=== PATIENT | female | born 1935 | race Caucasian/White ===

== ENCOUNTER 2018-02-17 07:22 | Day surgery (SDC) | payer OTHER ==
[2018-02-16 08:15] VITALS: BMI 29.2
[2018-02-17 08:08] VITALS: TEMP 98.8
[2018-02-17] MEDS ORDERED: PROPOFOL 20 ML ONE (08:17)
[2018-02-17] MEDS ORDERED: ePHEDrine SULFATE 50 MG/1 ML AMPULE ONE (08:17)
[2018-02-17] MEDS ORDERED: SUCCINYLCHOLINE CHLORIDE 200 MG/10 ML VIAL ONE (08:17)
[2018-02-17] MEDS ORDERED: SODIUM CHLORIDE 0.9% P/F 10 ML VIAL IJ ONE (08:18)
--- NOTE | 2018-02-17 08:23 | HP ---
Admitting History and Physical - Admission Chief Complaint: left foot 5th toe pain History of Present Illness: This is a 83 year old female with pmhx HTN, HLD, remote left ductal breast cancer s/p lumpectomy with radiation, sciatica, left eye macular degeneration, early dementia recently placed on medication, presented today for Left hammer toe correction. PT reports pain since last fall, however ambulating worsens when toe becomes inflamed. Separate to that, her sciatica has worsened this morning, she complains of R hip pain. PT denies fever, chills, sob, chest pain, abd pain, n/v, sick contacts. History Source: Patient, Family Member Limitations to Obtaining History: No Limitations - Past Medical History P[employer]: Yes: Dementia Cardiovascular: Yes: HTN, Hyperlipdemia Musculoskeletal: Yes: Other (sciatica) - Past Surgical History Additional Past Surgical History: lumpectomy - Smoking History Smoking history: Former smoker Have you smoked in the past 12 months: No - Alcohol/Substance Use Hx Alcohol Use: No History of Substance Use: reports: None - Social History Usual Living Arrangement: Yes: With Spouse ADL: Independent Home Medications - Allergies Allergies/Adverse Reactions: Allergies Allergy/AdvReac Type Severity Reaction Status Date / Time No Known Allergies Allergy Verified 02/16/18 08:15 - Home Medications Home Medications: Ambulatory Orders Aspirin 81 mg PO DAILY 02/16/18 Atorvastatin Ca [Lipitor] 20 mg PO DAILY 02/16/18 Cholecalciferol (Vitamin D3) [Vitamin D3] 5,000 unit PO DAILY 02/16/18 Donepezil HCl [Aricept] 5 mg PO DAILY 02/16/18 Lisinopril 10 mg PO DAILY 02/16/18 Memantine HCl 10 mg PO DAILY 02/16/18 Triamterene/Hydrochlorothiazid [Triamterene-Hctz 37.5-25 mg Cp] 1 each PO DAILY 02/16/18 Vit C/E/Zn/Coppr/Lutein/Zeaxan [Preservision Areds 2 Softgel] 1 each PO DAILY Review of Systems - Review of Systems Constitutional: reports: No Symptoms Eyes: reports: No Symptoms HENT: reports: No Symptoms Neck: reports: No Symptoms Cardiovascular: reports: No Symptoms Respiratory: reports: No Symptoms Gastrointestinal: reports: No Symptoms Genitourinary: reports: No Symptoms Breasts: reports: See HPI Musculoskeletal: reports: Other (left 5th toe tenderness) Integumentary: reports: No Symptoms Neurological: reports: No Symptoms Endocrine: reports: No Symptoms Hematology/Lymphatic: reports: No Symptoms Psychiatric: reports: No Symptoms Physical Examination Constitutional: Yes: No Distress Eyes: Yes: Conjunctiva Clear Neck: Yes: Supple Cardiovascular: Yes: Regular Rate and Rhythm, S1, S2 Respiratory: Yes: Regular, CTA Bilaterally Gastrointestinal: Yes: Normal Bowel Sounds, Soft Renal/: Yes: WNL Extremities: Yes: Erythema (left foot 5th digit, tenderness, swelling) Edema: No Peripheral Pulses WNL: Yes Integumentary: Yes: WNL Problem List - Problems (1) Hammer toe of left foot Code(s): M20.42 - OTHER HAMMER TOE(S) (ACQUIRED), LEFT FOOT (2) HTN (hypertension) Code(s): I10 - ESSENTIAL (PRIMARY) HYPERTENSION (3) HLD (hyperlipidemia) Code(s): E78.5 - HYPERLIPIDEMIA, UNSPECIFIED (4) Breast cancer Code(s): C50.919 - MALIGNANT NEOPLASM OF UNSP SITE OF UNSPECIFIED FEMALE BREAST (5) History of lumpectomy Code(s): Z98.890 - OTHER SPECIFIED POSTPROCEDURAL STATES (6) History of lumpectomy of left breast Code(s): Z98.890 - OTHER SPECIFIED POSTPROCEDURAL STATES (7) Sciatic nerve pain Code(s): M54.30 - SCIATICA, UNSPECIFIED SIDE (8) Macular degeneration of left eye Code(s): H35.30 - UNSPECIFIED MACULAR DEGENERATION Assessment/Plan Assessment: 83 year old female admitted for left hammertoe correction Plan: 1. Left hammertoe correction - Surgery with Dr. Palmer today 2. HTN - Lisinopril 10mg daily - Dyazide 1 tab daily 3. Dementia - Namenda, Aricept 4. L macular degeneration - Preservision drops Visit type - Emergency Visit Emergency Visit: Yes Care time: The patient presented to the Emergency Department on the above date and was hospitalized for further evaluation of their emergent condition. - New Patient This patient is new to me today: Yes Date on this admission: 02/17/18 - Critical Care Critical Care patient: No Hospitalist Screening - Colonoscopy Questionnaire Colonoscopy Questionnaire: Colonoscopy Questionnaire - Patient: 50 - 75 years old and never had a screening colonoscopy: Unknown History of colon or rectal polyps, or CA: Unknown History of IBD, Crohn's disease or UC: Unknown History of abdominal radiation therapy as a child: Unknown - Relative: 1 with colon or rectal CA, or polyps at age 60 or younger: Unknown Colon or rectal CA diagnosed at age 45 or younger: Unknown Multiple relatives with colon or rectal CA: Unknown - Outcome: Screening Result: Negative Screen
[2018-02-17] MEDS ORDERED: DEXAMETHASONE SOD PHOSPHATE 4 MG/1 ML VIAL ONE (08:42)
[2018-02-17] MEDS ORDERED: BENZOIN/ALOE VERA/STORAX/TOLU 58 ML BOTTLE ONE (08:42)
[2018-02-17] MEDS ORDERED: LIDOCAINE HCL 1%, 10 MG/ML (20ML VIAL) PNB ONE (09:29)
[2018-02-17] MEDS ORDERED: BUPIVACAINE HCL/PF (5 MG/ML) 30 ML VIAL IJ ONE (09:29)
[2018-02-17] MEDS ORDERED: ceFAZolin SODIUM 1 GM VIAL ONE (09:36)
[2018-02-17] MEDS ORDERED: ceFAZolin SODIUM 1 GM VIAL IVPB ONE (09:46)
[2018-02-17] MEDS ORDERED: MEMANTINE HCL 10 MG TABLET (FP) PO SCH (10:00)
[2018-02-17] MEDS ORDERED: TRIAMTERENE AND HCTZ - 37.5 MG/25 MG CAPSULE PO SCH (10:00)
[2018-02-17] MEDS ORDERED: LISINOPRIL 10 MG TABLET (FP) PO SCH (10:00)
[2018-02-17] MEDS ORDERED: ASPIRIN 81 MG CHEWABLE TABLETS PO SCH (10:00)
[2018-02-17] MEDS ORDERED: DONEPEZIL HCL 5 MG TABLET (FP) PO SCH (10:00)
[2018-02-17] MEDS ORDERED: ATORVASTATIN CA 20 MG TABLET (FP) PO SCH (10:00)
--- NOTE | 2018-02-17 11:32 | OP ---
DATE OF OPERATION: PREOPERATIVE DIAGNOSIS: Left 5th toe hammer toes. POSTOPERATIVE DIAGNOSIS: Left 5th toe hammer toes. PROCEDURES: 1. Arthroplasty of the proximal interphalangeal joint of the left 5th digit. 2. Exostectomy of the distal phalanx of the left 5th digit. ANESTHESIA: Local with IV sedation. SURGEON: Reymundo Palmer DPM and Virgil Grijalva DPM OIL DRILLER: HEMOSTASIS: Ankle tourniquet 50 minutes. ESTIMATED BLOOD LOSS: Less than 3 mL. MATERIALS: 3-0 Vicryl and 4-0 nylon. PATHOLOGY: Bone and soft tissue left foot. DESCRIPTION OF PROCEDURE: The patient was brought to the operating room and placed on the operating room table in a supine position. A pneumatic ankle tourniquet was then placed on the patient's left ankle. Following IV sedation, local anesthesia was obtained utilizing up to 8 mL of the 1:1 mixture of 1% lidocaine plain and 5% Marcaine plain. The right foot was then prepped and draped in the usual aseptic fashion. An Esmarch bandage was then utilized to exsanguinate the patient's left foot. Ankle tourniquet was then inflated. Attention was then directed to the 5th digit where an approximately 1.5-cm curvilinear oblique incision was made proximal lateral to the distal medial over the dorsal aspect of the proximal interphalangeal joint of the 5th digit. The incision was then deepened through the subcutaneous tissue with care to retract all of the neurovascular structures. All bleeders were cauterized and ligated. A transverse tenotomy and capsulotomy was performed to the proximal interphalangeal joint of the 5th digit. The head of the proximal phalanx was then freed from the soft tissue . A sagittal bone saw was then used to cut the head of the proximal phalanx and then passed from the operating room table. A separate incision was made at the distal lateral tip of the 5th digit the incision approximately size 0.3 x 0.2 cm semielliptical. The incision was carried out to the soft tissue. The freer was used to elevate the periosteum. The exostosis was palpated at the distal phalanx of the 5th digit. Mini rotary bursitis were used to file the exostosis. Upon completion of removal of exostosis, there were smooth edges of the distal phalanx. The wounds were then flushed with a copious amount of normal saline and bacitracin. The extensor tendons were reapproximated with 3-0 Vicryl , and skin was reapproximated with 4-0 nylon. Upon completion of the procedure, a total of 4 mL of 0.5% Marcaine and 4-mL mixture of 0.5% Marcaine and 4 mg dexamethasone were infiltrated around the surgical site. The incisions were dressed with Betadine-soaked, Adaptic, and covered with a sterile compressive dressing such as 4 x 4 and Kerlix. The tourniquet was then deflated and immediate hyperemia returned to all digits. The foot was then Enrico wrapped. The patient tolerated the procedure well and was transferred to the recovery room with all vital signs stable and vascular status intact to the feet. Following postoperative monitoring, the patient will be discharged and given instructions and prescriptions, which were discussed prior to the surgery. HARSHIL Perez/[id number] RED
[2018-02-17 11:50] VITALS: BP 154/80; PULSE 80
--- NOTE | 2018-02-18 16:05 | PATH ---
Surgical Pathology Report Patient Name: BUD DE [facility]. Rec. #: [id number] /Age/Gender: 1935 (Age: 83) / F Account: [id number] Location: AMBULATORY SURG Taken: 02/17/2018 Received: 02/17/2018 Reported: 02/18/2018 Physicians: Reymundo Palmer DPM Specimen(s) Received BONE AND SKIN FROM LEFT 5TH DIGIT Clinical History Hammertoe fifth digit Final Diagnosis BONE, LEFT, FIFTH, HAMMERTOE CORRECTION: BONE AND CARTILAGE WITH DEGENERATIVE CHANGES. RARE SUPERFICIAL FRAGMENT OF SQUAMOUS EPITHELIUM WITH PARAKERATOSIS. Electronically Signed Mecca Guerra M.D. Gross Description Received in formalin labeled "bone from left fifth hammertoe," is a 1.1 x 0.8 x 0.2 cm aggregate of rangel bone fragments. The specimen is entirely submitted in one cassette, following decalcification. /02/17/2018 saudi02/17/2018
== END 2018-02-17 13:40 | disposition home or self-care (01) ==
LOC: JASUSAT 07:22 → JASU-SURG 07:22 → JASUSAT 13:40
PROVIDERS: ATTEND Podiatrist Foot Surgery
PROC: 0QBR0ZZ Excision of Left Toe Phalanx, Open Approach (ICD-10-PCS; 2018-02-17)
PROC: 0SRQ0JZ Replacement of Left Toe Phalangeal Joint with Synthetic Substitute, Open Approach (ICD-10-PCS; principal; 2018-02-17 09:00)
DX: M20.41 Other hammer toe(s) (acquired), right foot (principal); M89.9 Disorder of bone, unspecified
CPT/HCPCS: 73630-TC-LT; 88304-TC; 88311-TC; 97116-GP